=== PATIENT | male | born 1975 | race Caucasian/White ===

== ENCOUNTER 2018-08-28 12:31 | Emergency (ER) | payer MEDICAID, OTHER ==
[2018-08-28] MEDS ORDERED: Sodium Chloride 0.9% 10 ML Syringe FLUSH PRN (12:49)
[2018-08-28] MEDS ORDERED: HYDROmorphone 1 MG/ML Syringe IVPUSH ONE (12:49)
[2018-08-28] MEDS ORDERED: Ondansetron 4 MG/2 ML SDV IVPUSH ONE (13:11)
--- NOTE | 2018-08-28 14:05 | EDM.PDOC ---
ED HPI GENERAL MEDICAL PROBLEM - General Chief Complaint: General Time Seen by Provider: 08/28/18 12:35 Source of Information: Reports: Patient History Limitations: Reports: No Limitations - History of Present Illness INITIAL COMMENTS - FREE TEXT/NARRATIVE: Pt. presents to ER with complaints of R inguinal pain. Pt. states that he underwent hernia surgery involving mesh several years ago. He states that he was lifting a car bumper and began experiencing R sided groin pain. He states that he felt a popping sensation when lifting it. Denies any numbness/tingling in the extremity. He states that the discomfort is quite severe but states that it has improved since onset. He states that it is similar to what he has experienced in the past. Onset: Today Location: Reports: Abdomen, Lower Extremity, Right Quality: Reports: Sharp, Throbbing - Related Data Allergies Allergy/AdvReac Type Severity Reaction Status Date / Time venom-honey bee Allergy Swelling Verified 02/04/16 11:45 MDT [bee venom (honey bee)] Chalk AdvReac Irritabilit Uncoded 05/08/16 11:20 MST y Home Meds: Home Meds Ibuprofen [Advil] 600 mg PO BID PRN 08/26/14 [History] Lisinopril [Prinivil] 20 mg PO DAILY 05/09/16 [History] Zolpidem [Ambien] 10 mg PO ASDIRECTED PRN 05/09/16 [History] oxyCODONE HCl/Acetaminophen [Percocet 5-325 mg Tablet] 1 - 2 each PO Q6HR PRN # 20 tablet 01/03/17 [Rx] Past Medical History Cardiovascular History: Reports: Hypertension - Past Surgical History Musculoskeletal Surgical History: Reports: Knee Replacement, Other (See Below) Social & Family History - Caffeine Use Caffeine Use: Reports: Coffee ED ROS GENERAL - Review of Systems Review Of Systems: See Below Constitutional: Reports: No Symptoms HEENT: Reports: No Symptoms Respiratory: Reports: No Symptoms Cardiovascular: Reports: No Symptoms Endocrine: Reports: No Symptoms GI/Abdominal: Reports: Abdominal Pain : Reports: No Symptoms Musculoskeletal: Reports: Other (R inguinal pain) Skin: Reports: No Symptoms Neurological: Reports: No Symptoms Psychiatric: Reports: No Symptoms Hematologic/Lymphatic: Reports: No Symptoms Immunologic: Reports: No Symptoms ED EXAM, GENERAL - Physical Exam Exam: See Below Exam Limited By: No Limitations General Appearance: Alert, WD/WN, No Apparent Distress GI/Abdominal: Normal Bowel Sounds, Soft, Non-Tender, No Organomegaly, No Distention, No Abnormal Bruit, No Mass, Pelvis Stable (Male) Exam: Normal Inspection, Hernia (R inguinal pain) Rectal (Males) Exam: Deferred Course - Orders/Labs/Meds Orders: Active Orders 24 hr Category Date Time Status Sodium Chloride 0.9% [Saline Flush] Med 08/28/18 12:49 Active 10 ml FLUSH ASDIRECTED PRN Peripheral IV Insertion Adult [OM.PC] Routine Oth 08/28/18 12:49 Ordered Medication Orders Sodium Chloride (Saline Flush) 10 ml FLUSH ASDIRECTED PRN PRN Reason: Keep Vein Open Meds: Medications Generic Name Dose Route Start Last Admin Trade Name Freq PRN Reason Stop Dose Admin Sodium Chloride 10 ml 08/28/18 12:49 Saline Flush FLUSH ASDIRECTED PRN Keep Vein Open Discontinued Medications Generic Name Dose Route Start Last Admin Trade Name Freq PRN Reason Stop Dose Admin Hydromorphone HCl 1 mg 08/28/18 12:49 Dilaudid IVPUSH 08/28/18 12:50 ONETIME ONE Ondansetron HCl 4 mg 08/28/18 13:11 Zofran IVPUSH 08/28/18 13:12 ONETIME ONE Departure - Departure Time of Disposition: 14:06 Disposition: Home, Self-Care 01 Clinical Impression: Inguinal hernia - Discharge Information Instructions: Acetaminophen; Hydrocodone tablets or capsules, Inguinal Hernia, Adult, [id number] Referrals: PCP,Not In Area [Primary Care Provider] - Forms: ED Department Discharge Additional Instructions: Beggs 10/325 mg 1 tablet every 4-6 hours as needed for pain Follow-up with your primary and/or surgeon as needed for continued pain. - My Orders Last 24 Hours: My Active Orders 08/28/18 12:49 Sodium Chloride 0.9% [Saline Flush] 10 ml FLUSH ASDIRECTED PRN Peripheral IV Insertion Adult [OM.PC] Routine - Assessment/Plan Last 24 Hours: My Active Orders 08/28/18 12:49 Sodium Chloride 0.9% [Saline Flush] 10 ml FLUSH ASDIRECTED PRN Peripheral IV Insertion Adult [OM.PC] Routine Plan: Pt. will need an ultrasound but can do this as an outpatient. His pain is controlled. Beggs 10/325 mg 1 tablet every 4-6 hours as needed for pain Follow-up with your primary and/or surgeon as needed for continued pain.
[2018-08-28 15:50] VITALS: BP 143/91
== END 2018-08-28 14:51 | disposition home or self-care (01) ==
LOC: VM.ED 12:31
DX: K40.90 Unilateral inguinal hernia, without obstruction or gangrene, not specified as recurrent (principal); I10 Essential (primary) hypertension; Z79.899 Other long term (current) drug therapy
CPT/HCPCS: 96374; 96375; 99283; J1170; J2405